=== PATIENT | female | born 1960 | race African-American/Black ===

== ENCOUNTER 2017-02-01 20:53 | Emergency (ER) | payer MEDICAID ==
[~2017-02-01] VITALS: Ht 160 cm; Wt 72.1 kg
[2017-02-01 21:33] VITALS: BP 125/69
[2017-02-01] MEDS ORDERED: MYCOLOG OINT1 APPLIC TOPIC (21:57)
--- NOTE | 2017-02-01 21:57 | Emergency Room Report ---
History of Present Illness General Chief Complaint: Skin Rash/Abscess Source: Patient Present Illness HPI Is a 56-year-old female with multiple cardiac history. She presents with chief complaint of rash on her body. She was treated with antibiotics not helping. She thinks that she may have ringworm. His been ongoing for a week. She's been scratching it is very itchy. Denies any drug use. No fever or chills. No nausea no vomiting. Allergies: Coded Allergies: No Known Allergies (Unverified , 02/01/17) Patient History Past Medical History: see triage record, old chart reviewed Past Surgical History: other Pertinent Family History: none Social History: Denies: drug use Now: No Immunizations: other Reviewed Nursing Documentation: PMH: Agreed, PSxH: Agreed Nursing Documentation-PMH Past Medical History: No History, Except For Review of Systems Eye: Denies: blurred vision, eye pain ENT: Denies: ear pain, nose congestion, throat swelling Respiratory: Denies: cough, shortness of breath Cardiovascular: Denies: chest pain, palpitations Gastrointestinal: Denies: abdominal pain, diarrhea, nausea, vomiting Musculoskeletal: Denies: back pain, joint pain Skin: Reports: rash Neurological: Denies: headache, numbness Endocrine: Denies: increased thirst, increased urine Hematologic/Lymphatic: Denies: easy bruising All Other Systems: negative except mentioned in HPI Physical Exam Vital Signs Date Time Temp Pulse Resp B/P Pulse Ox O2 Delivery O2 Flow Rate FiO2 02/01/17 21:27 98.2 78 15 125/69 98 Room Air vitals normal Sp02 EP Interpretation: reviewed, normal General Appearance: well appearing, no apparent distress, alert Head: normocephalic, atraumatic Eyes: bilateral eye EOMI, bilateral eye PERRL ENT: hearing grossly normal, normal pharynx Neck: full range of motion, supple, no meningismus Respiratory: chest non-tender, lungs clear, normal breath sounds Cardiovascular #1: regular rate, rhythm, no murmur Gastrointestinal: normal bowel sounds, non tender, no mass, no organomegaly, no bruit, non-distended Musculoskeletal: back normal, gait/station normal, normal range of motion Neurologic: alert, oriented x3 Psychiatric: mood/affect normal Skin: warm/dry, rash - diffuse maculopapular rash on body. skin breakage from scratching Medical Decision Making Diagnostic Impression: Primary Impression: Atopic dermatitis, unspecified Additional Impressions: Cocaine abuse Psychogenic formication ER Course Patient presents with rash. It appeared to be secondary to psychogenic formication from her cocaine abuse. She denies any drug use initially when I ask her. No evidence of scabies. We'll discharge home. Last Vital Signs Date Time Temp Pulse Resp B/P Pulse Ox O2 Delivery O2 Flow Rate FiO2 02/01/17 21:33 98.2 78 15 125/69 98 Room Air Status: unchanged Disposition: HOME, SELF-CARE Condition: Stable Scripts Nystatin/Triamcinolone (Nystatin-Triamcinolone Ointm) 15 Gm Oint...g. 1 APPLIC TOPIC TID, #60 GM Prov: JEFFRY DEGROOT M.D. 02/01/17 Referrals: NON PHYSICIAN (PCP) Patient Instructions: Rash Additional Instructions: Followup with your Dr. in 7 days. Return if symptom worsen. JEFFRY DEGROOT M.D. Feb 01, 2017 21:57
[2017-02-01 22:02] VITALS: BP 125/69
== END 2017-02-01 22:02 | disposition home or self-care (01) ==
LOC: EMR 21:15
DX: L20.9 Atopic dermatitis, unspecified (principal); R21 Rash and other nonspecific skin eruption; F14.10 Cocaine abuse, uncomplicated; F45.8 Other somatoform disorders
CPT/HCPCS: 80300; 99283